=== PATIENT | male | born 1940 | race African-American/Black ===

== ENCOUNTER 2019-12-24 18:11 | Emergency (ER) | payer OTHER, MEDICAID ==
[~2019-12-24] VITALS: Ht 154.9 cm; Wt 54.4 kg
[2019-12-24 18:15] VITALS: BP_SYST 118
--- NOTE | 2019-12-24 18:15 | NUR ---
Patient to ER bed 06 to gown for evaluation. Side rails up.
--- NOTE | 2019-12-24 18:20 | NUR ---
pt arrives from [facility] for Med Clearance to [facility]. Pt is being combative and towards staff. PT is on 5150 started today, 12/24/[address] Fatima. Pt is attempting to hit staff w/ a cane. Pt will be going to [facility].
--- NOTE | 2019-12-24 18:30 | NUR ---
ER at bedside examining patient.
--- NOTE | 2019-12-24 18:35 | NUR ---
LABS DRAWN. MRSA COLLECTED
--- NOTE | 2019-12-24 18:42 | NUR ---
MEDICATED THE PT W/ ATIVAN IM PER MD ORDER
[2019-12-24] MEDS ORDERED: LORazepam 2 MG/ML VIAL IM ONE (18:45)
[2019-12-24 18:51] LABS: BASOPHILS # (AUTO) 0.1 K/uL (0.0-0.2); BASOPHILS % (AUTO) 2.2 % (0.0-2.0); EOSINOPHILS # (AUTO) 0.2 K/uL (0.0-0.4); EOSINOPHILS % (AUTO) 3.7 % (0.0-4.0); HEMATOCRIT 30.8 % (36-54); HEMOGLOBIN 9.8 g/dL (14.0-18.0); LYMPHOCYTES # (AUTO) 1.6 K/uL (1.0-5.5); LYMPHOCYTES % (AUTO) 27.1 % (20.5-51.5); MEAN CORPUSCULAR HEMOGLOBIN 32 pg (27-31); MEAN CORPUSCULAR HGB CONC 32 % (32-36); MEAN CORPUSCULAR VOLUME 102 fL (79.0-98.0); MONOCYTES # (AUTO) 0.6 K/uL (0.0-1.0); MONOCYTES % (AUTO) 9.1 % (1.7-9.3); NEUTROPHILS # (AUTO) 3.5 K/uL (1.8-7.7); NEUTROPHILS % (AUTO) 57.9 % (40.0-70.0); PLATELET COUNT (AUTO) 383 K/uL (130-430); RED BLOOD CELL COUNT(AUTO) 3.01 MIL/uL (4.2-6.2); WHITE BLOOD COUNT (AUTO) 6.1 K/uL (4.8-10.8)
[2019-12-24 18:55] LABS: ANION GAP 10 (5-15); CALCIUM 9.7 mg/dL (8.4-11.0); CHLORIDE 110 mmol/L (98-107); CREATININE 1.73 mg/dL (0.55-1.30); GLUCOSE 91 mg/dL (70-99); SODIUM SERUM 144 mmol/L (136-145); UREA NITROGEN, BLOOD 35 mg/dL (8-21)
[2019-12-24 19:00] LABS: POTASSIUM 5.9 mmol/L (3.5-5.1)
[2019-12-24 19:03] LABS: ACETAMINOPHEN < 1 ug/mL (1-30); ALANINE AMINOTRANSFERASE 24 U/L (12-78); ASPARTATE AMINOTRANSFERASE 23 U/L (10-37); TOTAL BILIRUBIN 0.3 mg/dL (0.0-1.0)
[2019-12-24 19:04] LABS: ALCOHOL, BLOOD < 3 mg/dL (<10)
[2019-12-24] MEDS ORDERED: SODIUM ZIRCONIUM CYCLOSILICATE 10 GM POWD.PACK PO ONE (19:15)
--- NOTE | 2019-12-24 19:16 | NUR ---
care endorsed to Nava PRIETO. Pt is in stable condition. Medical clearance pending
[2019-12-24 19:27] LABS: CHOLESTEROL 114 mg/dL (<200); HDL CHOLESTEROL 57 mg/dL (>45); LDL CHOLESTEROL 45 mg/dL (<100); TRIGLYCERIDES 32 mg/dL (30-150)
--- NOTE | 2019-12-24 20:20 | NUR ---
Given report to CONNER Nielsen ([facility]) by CONNER Huynh.
--- NOTE | 2019-12-24 21:56 | NUR ---
Report given to JG Tamez.
[2019-12-24 22:01] VITALS: BP_SYST 127
--- NOTE | 2019-12-24 22:01 | NUR ---
Patient to be transferred to [facility]. Is being transferred due to higher level of care. Receiving facility has accepting physician and available space. ER physician has signed transfer form. Patient or responsible constitution party has agreed to transfer and signed form. Patient belongings inventoried and will be sent with patient. Copy of nursing notes, lab reports, EKG, Physicians Orders and X-rays to be sent with patient. Report called to CONNER Nielsen at receiving facility. Receiving physician is Dr. Fonseca. [facility] ambulance service has been called for transfer. ETA is 10 minutes.
--- NOTE | 2019-12-25 16:35 | NUR ---
RECEIVED +NARES MRSA, CALL PLACED TO [facility] AND SPOKE WITH
== END 2019-12-24 22:01 ==
LOC: SED 18:11
DX: Z13.30 Encounter for screening examination for mental health and behavioral disorders, unspecified (principal); J44.9 Chronic obstructive pulmonary disease, unspecified; E11.9 Type 2 diabetes mellitus without complications; F20.9 Schizophrenia, unspecified
CPT/HCPCS: 36415; 80053; 80061; 83036; 84132; 85025; 87081; 96372; 99285; G0480; G0481; G0482; J2060